=== PATIENT | male | born 1995 | race Caucasian/White ===

== ENCOUNTER → 2017-07-31 | Day surgery (SDC) | payer OTHER ==
[2017-07-30 15:14] VITALS: Ht 170.2 cm; Wt 70.5 kg
[~2017-07-31] VITALS: Ht 170.2 cm; Wt 70.5 kg
[~2017-07-31] MED LIST: ATROPINE SULFATE 0.1 MG/ML 5ML SYR IV PRN; BACITRACIN OINT 15 GM TUBE ONE; CEFAZOLIN 1000MG IV PUSH 7.5 ML IV SCH; DEXAMETHASONE SOD INJ 4 MG/ML VIAL ONE; EpINEphrine HCL INJ 1 MG/ML 1ML SYRINGE ONE; FENTANYL CITRATE INJ 50 MCG/1 ML 2 ML VIAL IV PRN; FENTANYL CITRATE INJ 50 MCG/1 ML 2 ML VIAL ONE; GELATIN SPONGE 12-7MM ONE; KETOROLAC TROMETHAMINE 30 MG/ML VIAL IV. PRN; LIDO 2%/EPINEPHRINE 1:100000 20 ML VIAL INFIL ONE; LIDOCAINE 4% MPF SOAK 5 ML = 1 DOSE TOP ONE; LIDOCAINE HCL 2% 2 ML VIAL (20MG/ML) ONE; MIDAZOLAM HCL 1 MG/ML 2ML VIAL ONE; ONDANSETRON INJ 2 MG/ML 2 ML VIAL IV PRN; ONDANSETRON INJ 2 MG/ML 2 ML VIAL ONE; OXYC-57 PO; OXYCODONE/ACETAMINOPHEN 5-325 TAB PO PRN; PHENYLEPHRINE 1% NA SPR 15 ML BTL ONE; PROPOFOL IV EMULSION 10 MG/ML 20 ML VIAL IV ONE; SODIUM CHLORIDE 0.9% 1000ML 1,000 ML IV SCH
--- NOTE | 2017-07-31 07:41 | History and Physical: Surg Cnt ---
History & Physical Date Jul 31, 2017. Chief Complaint fell on face History of Present Illness The patient is a 22 year old male with complaints of nasal fracture Additional History Hepatic Disease: No Endocrine Disorder: No Kidney Disease: No Hypertension: No Heart Disease: No Bleeding Tendencies: No Infectious Diseases: No Allergies Coded Allergies: No Known Allergies (Unverified , 07/30/17) Home Medications No Active Prescriptions or Reported Meds Physical Examination Skin: warm/dry, no rash Eyes: normal inspection, EOMI, sclerae normal ENT: + pertinent finding (dorsum bent to right, stepoff left nasal bone) Diagnosis nasal fracture Plan of Treatment closed reduction
--- NOTE | 2017-07-31 12:57 | History & Physical Bridge Note ---
H&P Re-Evaluation Bridge Note: I have examined the patient, reviewed the History & Physical and in the interval since the performance of the History & Physical I have noted the following changes of clinical significance: No changes noted
[2017-07-31] MEDS: LACTATED RINGER'S 1000ML 1,000 ML IV SCH ×3 (13:50→14:58)
--- NOTE | 2017-07-31 14:38 | [facility] Post Operative Brief Note ---
Immediate Operative Summary Operative Date Jul 31, 2017. Pre-Operative Diagnosis Nasal fracture Post-Operative Diagnosis Same as pre-op Procedure(s) Performed Closed Reduction Nasal Fracture and Septoplasty Surgeon Accounts Clerk Surgeon(s) None Estimated Blood Loss 10ML Findings Consistent with Post-Op Diagnosis Specimens None Drains None Anesthesia Type General Complication(s) none Disposition Accompanied Pt To Recovery: yes Disposition: Recovery Room / PACU
--- NOTE | 2017-07-31 14:42 | [facility] Operative Report ---
Operative Report Operative Date Jul 31, 2017. Pre-Operative Diagnosis Nasal fracture Post-Operative Diagnosis Same plus septal fracture Procedure(s) Performed Closed Reduction Nasal Fracture and Septoplasty Surgeon Superintendent Power Surgeon(s) None Estimated Blood Loss 10ML Specimens None Drains None Anesthesia Type General Complication(s) none Disposition yes Recovery Room / PACU Indications 22-year-old male who injured his nose when he fell on his face in his yard Description of Procedure The patient was brought to the operating room and placed in the supine position. General anesthesia was induced using LMA. The nose was decongested using topical cottonoids with a solution of 4 cc of 4% Xylocaine mixed with 1 cc of epinephrine. Upon inspection he was noted to have a septal fracture with a large spur to the left posteriorly. Therefore the septum was injected with 2 % Xylocaine with 1-100,000 strength epinephrine. The left [place] incision was made and the mucoperichondrium was elevated off the left side of the septum. The fracture portion of the perpendicular plate of the ethmoid was deviated towards the left. This was isolated via bilateral posterior tunnels and then removing the bony cartilaginous spur using the [place] forceps. This returned the septum to the midline. The septum was packed with a single piece of [place] on the left side. The dorsum of the nose was reduced to the midline by pushing the right nasal bone and and lifting the left nasal bone. The dorsum of the nose also had to be lifted because of a small saddle deformity which could not be totally corrected. A [place] splint was placed on the dorsum of the nose. The patient tired procedure well and was taken recovery area in satisfactory condition. Due to the saddle deformity at the dorsum, the patient will be reevaluated later for possible cosmetic surgery. I attest to the content of the Intraoperative Record and any orders documented therein. Any exceptions are noted below.
--- NOTE | 2017-07-31 14:44 | Discharge Instructions-SurgCtr ---
Discharge Instructions Date of Service Jul 31, 2017. Visit Reason for Visit: Nasal Fx Discharge Discharge Diagnosis / Problem: Same plus septal fracture Discharge Goals Goal(s): Improve function, Therapeutic intervention Activity Recommendations Activity Limitations: per Instructions/Follow-up section Anesthesia . Post Anesthesia Instructions: If you have had General Anesthesia or IV Sedation: * Do not drive today. * Resume driving when surgeon permits. * Do not make important decisions or sign legal documents today. * Call surgeon for: 1. Temperature elevations greater than 101 degrees F. 2. Uncontrollable pain. 3. Excessive bleeding. 4. Persistent nausea and vomiting. 5. Medication intolerance (nausea, vomiting or rash). * For nausea and vomiting use only clear liquids such as: tea, soda, bouillon until nausea subsides, then gradually increase diet as tolerated. * If you have any concerns or questions, call your surgeon's office. If physician is unavailable and it is an emergency, call 911 or go to the nearest emergency room. . Instructions / Follow-Up Instructions / Follow-Up ACTIVITY RECOMMENDATIONS: * Being up and around is good, but no strenuous activity, heavy lifting or physical exertion for one week. * Keep your head elevated 30 degrees when lying down or sleeping. * Do not blow your nose for 48 hours, sniff back instead. * Avoid hot showers. OVER THE COUNTER MEDICATIONS: * You may use Tylenol * Avoid aspirin or aspirin containing products, e.g. as they may increase bleeding. SPECIAL CARE INSTRUCTIONS: * Expect to have bloody drainage from your nose and/or down your throat for one to three days. Change drip pad as needed. * Begin irrigating your nose with saline solution today, at least six to ten times per day and sniff back to help remove old clots or crust. * You may experience nasal and facial congestion, pain and pressure, this is normal. * Please call with any significant and/or progressive pain, redness, swelling around the eyes, visual changes, fever of 101.5 degrees F, active bleeding or any problems or concerns. * If active bleeding occurs, spray the nose three times at one minute intervals with Afrin spray and call or cell phone: . If unable to reach the doctor, go to the nearest Emergency Department. Special Diet: * Avoid extremely hot fluids. FOLLOW UP VISIT: Follow-up Visit with Dr. Zhou If not already scheduled, please call to schedule. Diet Recommendations Home Diet: no limitations Procedures Procedures Performed: Closed Reduction Nasal Fracture and Septoplasty Pending Studies Studies pending at discharge: no Medical Emergencies . Who to Call and When: Medical Emergencies: If at any time you feel your situation is an emergency, please call 911 immediately. . Non-Emergent Contact Non-Emergency issues call your: Primary Care Provider . . "Provider Documentation" section prepared by Freya Zhuo. . [place] Drug Monitoring Program Search Results: no issues identified
[2017-07-31 15:15] VITALS: TEMP 36.6
[2017-07-31 15:38] VITALS: BP 135/84; PULSE 55; O2SAT 100
--- NOTE | 2017-07-31 15:43 | Anesthesia Progress Nt - [facility] ---
Anesthesia Post Op Note Date & Time Jul 31, 2017 at 15:42 Vital Signs Pain Intensity: 0 Vital Signs Past 12 Hours Date Time Temp Pulse Resp B/P (MAP) Pulse Ox O2 Delivery O2 Flow Rate FiO2 07/31/17 15:38 55 16 135/84 (101) 100 Room Air 07/31/17 15:15 36.6 57 14 122/82 (95) 100 Room Air 07/31/17 15:08 64 15 100 07/31/17 15:08 62 15 07/31/17 15:06 129/83 07/31/17 15:05 36.6 64 16 129/83 100 Room Air 07/31/17 15:03 65 13 07/31/17 15:03 65 13 99 07/31/17 15:02 68 16 100 07/31/17 15:02 69 16 07/31/17 15:01 124/76 07/31/17 14:57 65 16 07/31/17 14:57 64 16 100 07/31/17 14:56 122/75 07/31/17 14:52 51 12 07/31/17 14:52 51 12 100 07/31/17 14:51 109/75 07/31/17 14:47 53 12 100 07/31/17 14:47 53 12 07/31/17 14:46 129/72 07/31/17 14:42 52 11 100 07/31/17 14:42 52 11 07/31/17 14:41 110/60 07/31/17 14:37 55 8 07/31/17 14:37 56 8 99 07/31/17 14:36 108/52 07/31/17 14:32 58 10 99 07/31/17 14:32 58 10 07/31/17 14:31 105/49 07/31/17 14:28 104/41 07/31/17 14:27 58 17 97 07/31/17 14:27 55 17 07/31/17 14:27 36.6 55 14 104/41 98 Humidified Oxygen 6 Mask 07/31/17 13:19 36.6 57 22 108/59 (75) 100 Room Air Notes Mental Status: alert / awake / arousable, participated in evaluation Pt Amnestic to Procedure: Yes Nausea / Vomiting: adequately controlled Pain: adequately controlled Airway Patency, RR, SpO2: stable & adequate BP & HR: stable & adequate Hydration State: stable & adequate Anesthetic Complications: no major complications apparent
== END | disposition home or self-care (01) ==
LOC: X.SURG 13:07
PROVIDERS: ATTEND Otolaryngology
DX: S02.2XXA Fracture of nasal bones, initial encounter for closed fracture (principal); W19.XXXA Unspecified fall, initial encounter; Y92.096 Garden or yard of other non-institutional residence as the place of occurrence of the external cause